=== PATIENT | female | born 1970 | race Caucasian/White ===

== ENCOUNTER 2017-10-15 14:07 | Emergency (ER) | payer MEDICAID ==
[~2017-10-15] VITALS: Ht 157.5 cm; Wt 74.6 kg
[2017-10-15 14:14] VITALS: BP 136/72
--- NOTE | 2017-10-15 14:20 | NUR ---
PATIENT PRESENTS TO ED WITH COMPLAINTS OF VAGINAL DISCHRGE, BURNING, AND IRRITATION. PATIENT STATES PROBLEM HAS BEEN GOING ON FOR 6 MONTHS. PATIENT DESCRIBES DISCHARGE CURDS AND GREEN IN COLOR, FOUL SMELLING. DENIES N/V/D; SKIN IS PINK/WARM/DRY; AAOX4 WITH EVEN AND STEADY GAIT; LUNGS CLEAR BL; HR EVEN AND REGULAR; PT DENIES ANY FEVER, CP, SOB, OR COUGH AT THIS TIME; PATIENT STATES PAIN OF 08/10 AT THIS TIME; VSS; PATIENT POSITIONED FOR COMFORT; HOB ELEVATED; BEDRAILS UP X1; BED DOWN. ER MD MADE AWARE OF PT STATUS.
--- NOTE | 2017-10-15 14:39 | NUR ---
ACCUCHECK - 335 ED MD NOTIFIED
[2017-10-15] MEDS ORDERED: INSULIN REGULAR, HUMAN 100 UNIT/ML VIAL SUBQ ONE (15:35)
[2017-10-15] MEDS ORDERED: FLUCONAZOLE 100 MG TAB PO ONE (15:35)
[2017-10-15] MEDS ORDERED: NACL 0.9% 1,000 ML IV ONE (15:45)
[2017-10-15 16:00] LABS: APPEARANCE,URINE CLEAR (CLEAR); BILIRUBIN,URINE NEGATIVE (NEGATIVE); BLOOD, URINE NEGATIVE (NEGATIVE); COLOR,URINE YELLOW (YELLOW); LEUKOCYTE ESTERASE ,URINE NEGATIVE (NEGATIVE); NITRITE, URINE NEGATIVE (NEGATIVE); UGLUCOSE 3+ (NEGATIVE)
[2017-10-15 16:10] LABS: BASOPHILS # (AUTO) 0.1 K/uL (0.00-0.22); BASOPHILS % (AUTO) 0.6 % (0.0-2.0); EOSINOPHILS # (AUTO) 0.2 K/uL (0-0.4); EOSINOPHILS % (AUTO) 2.2 % (0.0-4.0); HEMATOCRIT 41.3 % (36-48); HEMOGLOBIN 13.6 g/dL (12.0-16.0); LYMPHOCYTES # (AUTO) 2.9 K/uL (2.5-16.5); LYMPHOCYTES % (AUTO) 32.6 % (20.5-51.1); MEAN CORPUSCULAR HEMOGLOBIN 28 pg (27-31); MEAN CORPUSCULAR HGB CONC 33 g/dL (33-37); MEAN CORPUSCULAR VOLUME 85.3 fL (80-94); MONOCYTES # (AUTO) 0.4 K/uL (0.8-1.0); NEUTROPHILS # (AUTO) 5.3 K/uL (1.8-7.7); NEUTROPHILS % (AUTO) 59.6 % (42.2-75.2); PLATELET COUNT (AUTO) 237 K/uL (140-450); RED BLOOD CELL COUNT(AUTO) 4.85 MIL/uL (4.20-5.40); RED CELL DISTRIBUTION WIDTH 13.2 % (11.6-13.7); WHITE BLOOD COUNT (AUTO) 8.8 K/uL (4.8-10.8)
--- NOTE | 2017-10-15 16:26 | NUR ---
ACCUCHECK - 272 ED MD NOTIFIED
[2017-10-15 16:30] LABS: ALBUMIN 3.6 g/dL (3.4-5.0); ANION GAP 10.2 (8-16); CARBON DIOXIDE 30.8 mmol/L (21-32); CREATININE 0.6 mg/dL (0.6-1.3); TOTAL BILIRUBIN 0.2 mg/dL (0.0-1.0)
--- NOTE | 2017-10-15 17:08 | NUR ---
ACCUCHALEC - 251 ED MD NOTIFIED
--- NOTE | 2017-10-15 17:30 | NUR ---
Patient discharged with v/s stable. Written and verbal after care instructions given and explained. Patient alert, oriented and verbalized understanding of instructions. Ambulatory with steady gait. All questions addressed prior to discharge. ID band removed. Patient advised to follow up with PMD. Rx of METFORMIN AND DIFLUCAN given. Patient educated on indication of medication including possible reaction and side effects. Opportunity to ask questions provided and answered.
[2017-10-15 17:35] VITALS: BP 122/69
--- NOTE | 2017-10-20 12:13 | NUR ---
MEDICATION ADMINISTRATION NOTE 10/15/2017: INSULIN 6 UNITS ADMINISTERED AT APPROX START 1545 END 1545 COSIGNED BY FER ARTIS RN
== END 2017-10-15 17:30 | disposition home or self-care (01) ==
LOC: MED 14:07
DX: B37.3 Candidiasis of vulva and vagina (principal); E11.9 Type 2 diabetes mellitus without complications; Z88.8 Allergy status to other drugs, medicaments and biological substances
CPT/HCPCS: 36415; 80053; 81003; 85025; 96360; 99284; J1815; J7030

== ENCOUNTER 2018-04-20 11:04 | Emergency (ER) | payer MEDICAID ==
[~2018-04-20] VITALS: Ht 152.4 cm; Wt 74.8 kg
[2018-04-20 11:07] VITALS: BP 157/102
--- NOTE | 2018-04-20 11:15 | NUR ---
Patient ambulated to bed 7. RN evaluating patient at bedside.
--- NOTE | 2018-04-20 11:32 | NUR ---
Patient being evaluated by physician at bedside.
[2018-04-20] MEDS ORDERED: METOCLOPRAMIDE 10 MG/2 ML INJ VIAL IM ONE (11:35)
[2018-04-20] MEDS ORDERED: FAMOTIDINE 20 MG TAB PO ONE (11:35)
[2018-04-20] MEDS ORDERED: ACETAMINOPHEN 325 MG TAB PO ONE (11:35)
--- NOTE | 2018-04-20 11:41 | NUR ---
PT. BIB BY [facility], C/O OF HEADACHE SINCE LAST NIGHT, UPPER MEDIAL ABDOMINAL PAIN, NON TENDER TO TOUCH, POINTING BENEATH ZIPHOID PROCESS. STATES HAS N/V, DENIES DIARRHEA, AFBRILE, PT STATES SHE HAS FRONTAL RAMÍREZ THAT RADIATES TO THE BACK OF THE HEAD, DENIES BLURRY VISION, STEADY GAIT, MILD WEAKNESS. PMH: DM, HTN, MIGRAINES RX; METFORMIN
[2018-04-20 12:41] VITALS: BP 151/97
--- NOTE | 2018-04-20 12:41 | NUR ---
Patient discharged with v/s stable. Written and verbal after care instructions given and explained. Patient alert, oriented and verbalized understanding of instructions. Ambulatory with steady gait. All questions addressed prior to discharge. ID band removed. Patient advised to follow up with PMD. Rx of reglan and omeprazole given. Patient educated on indication of medication including possible reaction and side effects. Opportunity to ask questions provided and answered.
== END 2018-04-20 12:41 | disposition home or self-care (01) ==
LOC: MED 11:05
DX: K29.70 Gastritis, unspecified, without bleeding (principal); E11.9 Type 2 diabetes mellitus without complications; I10 Essential (primary) hypertension; Z88.8 Allergy status to other drugs, medicaments and biological substances
CPT/HCPCS: 96372; 99283; J2765

== ENCOUNTER 2020-12-13 09:02 | Emergency (ER) | payer MEDICAID ==
[~2020-12-13] VITALS: Ht 152.4 cm; Wt 73.0 kg
[2020-12-13 09:13] VITALS: BP 141/95
--- NOTE | 2020-12-13 09:23 | NUR ---
PT AMBULATED TO BED 9
--- NOTE | 2020-12-13 09:30 | NUR ---
50 Y/O FEMALE C/O VAGINAL PAIN AND ITCHINESS WITH PAINFUL URINATION X 3 DAYS. PT RATES PAIN 9/10, DENIES TAKING ANYTHING FOR PAIN AT HOME. PT IN MENOPAUSE. DENIES N/V/ABD PAIN. PT A/O X4 WITH EVEN AND UNLABORED RESPIRATIONS. PT IN GOWN PMH: DM ALLERGIES:IBUPROFEN
--- NOTE | 2020-12-13 10:00 | NUR ---
Female Compensation Coordinator accompanied female patient for EXTERNAL VAGINAL EXAM
[2020-12-13] MEDS ORDERED: FLUC150T PO (10:04)
[2020-12-13] MEDS ORDERED: CEPH-588 PO (10:04)
[2020-12-13] MEDS ORDERED: PHEN-1877 PO (10:04)
[2020-12-13 10:27] VITALS: BP 154/93
--- NOTE | 2020-12-13 10:27 | NUR ---
Patient discharged with v/s stable. Written and verbal after care instructions given and explained. Patient alert, oriented and verbalized understanding of instructions. Ambulatory with steady gait. All questions addressed prior to discharge. ID band removed. Patient advised to follow up with PMD. Rx of Cephalexin, Diflucan, Pyridium given. Patient educated on indication of medication including possible reaction and side effects. Opportunity to ask questions provided and answered.
[2020-12-13 13:11] LABS: APPEARANCE,URINE CLEAR (CLEAR); BILIRUBIN,URINE NEGATIVE (NEGATIVE); BLOOD, URINE NEGATIVE (NEGATIVE); COLOR,URINE YELLOW (YELLOW); NITRITE, URINE NEGATIVE (NEGATIVE); PH,URINE 7.5 (5.0-9.0); UGLUCOSE 1+ (NEGATIVE)
[2020-12-13 13:31] LABS: LEUKOCYTE ESTERASE ,URINE 1+ (NEGATIVE); RBC,URINE 0-5 /HPF (0-5); WBC,URINE 0-5 /HPF (0-5)
== END 2020-12-13 10:27 | disposition home or self-care (01) ==
LOC: MED 09:02
DX: B37.3 Candidiasis of vulva and vagina (principal); N39.0 Urinary tract infection, site not specified; E11.65 Type 2 diabetes mellitus with hyperglycemia; I10 Essential (primary) hypertension; Z88.6 Allergy status to analgesic agent; Z79.899 Other long term (current) drug therapy
CPT/HCPCS: 81001; 81025; 87086; 99284

== ENCOUNTER 2021-01-07 03:30 | Emergency (ER) | payer MEDICAID ==
[~2021-01-07] VITALS: Ht 162.6 cm; Wt 75.7 kg
[~2021-01-07 03:30] MED LIST: CEPH-588 PO; FLUC150T PO; PHEN-1877 PO
[2021-01-07 03:35] VITALS: BP 150/90
--- NOTE | 2021-01-07 03:35 | NUR ---
TO BED AMBULATORY
--- NOTE | 2021-01-07 03:40 | NUR ---
SEE COMEPLETE ASSESSMENT FOR FUTHER DETAILS.
--- NOTE | 2021-01-07 04:02 | NUR ---
SEB AT [facility] FOR MEDICAL EVALUATION.
[2021-01-07 04:56] LABS: ALBUMIN 3.7 g/dL (3.4-5.0); ANION GAP 9.6 (8-16); CARBON DIOXIDE 29.1 mmol/L (21-32); CREATININE 0.7 mg/dL (0.6-1.3); POTASSIUM 3.7 mmol/L (3.5-5.1); TOTAL BILIRUBIN 0.2 mg/dL (0.0-1.0)
[2021-01-07 05:06] LABS: BASOPHILS # (AUTO) 0.2 K/uL (0.00-0.22); BASOPHILS % (AUTO) 2.7 % (0.0-2.0); EOSINOPHILS # (AUTO) 0.3 K/uL (0-0.4); EOSINOPHILS % (AUTO) 4.6 % (0.0-4.0); HEMATOCRIT 39.5 % (36-48); HEMOGLOBIN 13.5 g/dL (12.0-16.0); LYMPHOCYTES # (AUTO) 1.8 K/uL (2.5-16.5); LYMPHOCYTES % (AUTO) 25.2 % (20.5-51.1); MEAN CORPUSCULAR HEMOGLOBIN 29 pg (27-31); MEAN CORPUSCULAR HGB CONC 34 g/dL (33-37); MONOCYTES # (AUTO) 0.4 K/uL (0.8-1.0); NEUTROPHILS # (AUTO) 4.4 K/uL (1.8-7.7); NEUTROPHILS % (AUTO) 61.5 % (42.2-75.2); PLATELET COUNT (AUTO) 218 K/uL (140-450); RED BLOOD CELL COUNT(AUTO) 4.64 MIL/uL (4.20-5.40); RED CELL DISTRIBUTION WIDTH 12.8 % (11.6-13.7); WHITE BLOOD COUNT (AUTO) 7.1 K/uL (4.8-10.8)
--- NOTE | 2021-01-07 05:12 | NUR ---
Patient appears to be resting comfortably in bed. Vital Signs within normal limits. Respirations even and unlabored.
[2021-01-07 05:19] LABS: APPEARANCE,URINE SL CLOUDY (CLEAR); BILIRUBIN,URINE NEGATIVE (NEGATIVE); BLOOD, URINE 3+ (NEGATIVE); COLOR,URINE YELLOW (YELLOW); LEUKOCYTE ESTERASE ,URINE TRACE (NEGATIVE); NITRITE, URINE NEGATIVE (NEGATIVE); PH,URINE 7.5 (5.0-9.0); UGLUCOSE 3+ (NEGATIVE)
[2021-01-07 05:36] LABS: WBC,URINE TOO MANY TO COUNT /HPF (0-5)
[2021-01-07] MEDS ORDERED: SULF-59 PO (05:46)
[2021-01-07] MEDS ORDERED: PHEN-1877 PO (05:46)
[2021-01-07 06:04] VITALS: BP 132/78
--- NOTE | 2021-01-07 06:04 | NUR ---
Patient discharged with v/s stable. Written and verbal after care instructions given and explained. Patient alert, oriented and verbalized understanding of instructions. Ambulatory with steady gait. All questions addressed prior to discharge. ID band removed. Patient advised to follow up with PMD. Rx of BACTRIM, PYRIDIUM given. Patient educated on indication of medication including possible reaction and side effects. Opportunity to ask questions provided and answered.
== END 2021-01-07 06:04 | disposition home or self-care (01) ==
LOC: MED 03:30
DX: N39.0 Urinary tract infection, site not specified (principal); E11.65 Type 2 diabetes mellitus with hyperglycemia
CPT/HCPCS: 36415; 80053; 81001; 85025; 87086; 99283

== ENCOUNTER 2021-11-22 08:44 | Emergency (ER) | payer BC, MEDICAID ==
[~2021-11-22] VITALS: Ht 162.6 cm; Wt 73.5 kg
[~2021-11-22 08:44] MED LIST changes: +SULF-59 PO
[2021-11-22 08:52] VITALS: BP 160/98
--- NOTE | 2021-11-22 09:22 | NUR ---
PT AMBULATED TO BED 07.
--- NOTE | 2021-11-22 09:35 | NUR ---
DR MILLER AT BEDSIDE EVALUATING PT
[2021-11-22] MEDS ORDERED: AMOXIL/CLAVULANATE 875/125 MG 1 TAB PO ONE (09:45)
[2021-11-22] MEDS ORDERED: ACETAMINOPHEN EXTRA STRENGTH 500 MG TAB PO ONE (09:45)
--- NOTE | 2021-11-22 09:45 | NUR ---
51YO FEMALE PT C/O HEADACHE XTODAY. PT STATES CONSISTENT PAIN W/ RADIARTION FROM L UPPER GUM , TO CHEEKBONE TO L QUAKER X1 MONTH. PT PRESENTS WITH REDDENED SWELLING IN UPPER L GUM DUE TO INFECTION AND STATES FINISHING RX ANTIBIOTICS GIVEN BY DENTIST. PT HAS HAD NO RELIEF AFTER ANTIBIOTICS, UNABLE TO RECALL NAME. PT TAKING TYLENOL FOR PAIN W/ MILD RELIEF. PT REPORTS INCREASED "HOT" PAIN XTHIS MORNING AND EXPRESSED CONCERN FOR POSSIBLE CANCER DUE TO FRIEND WITH SIMILIAR SYMPTOMS AND DX CANCER. PT AAOX4, RESPIRATIONS EVEN AND UNLABORED. NO VISIBLE DISTRESS. SAUDI ARABIAN SPEAKING HX: DIABETES ALLERGIES: IBUPROFEN
[2021-11-22] MEDS ORDERED: AMOX1TAB8 PO (10:02)
--- NOTE | 2021-11-22 10:15 | NUR ---
Patient discharged with v/s stable. Written and verbal after care instructions FOR DENTAL ABSCESS AND TENSION HEADACHE given and explained. Patient alert, oriented and verbalized understanding of instructions. Ambulatory with steady gait. All questions addressed prior to discharge. ID band removed. Patient advised to follow up with PMD. Rx of AMOXICILLIN given. Opportunity to ask questions provided and answered.
--- NOTE | 2021-11-22 10:16 | NUR ---
The patient's care was reviewed and supervised by Nevaeh Barry RN.
== END 2021-11-22 10:15 | disposition home or self-care (01) ==
LOC: MED 08:44
DX: K08.89 Other specified disorders of teeth and supporting structures (principal); R51.9 Headache, unspecified; E11.9 Type 2 diabetes mellitus without complications; Z88.6 Allergy status to analgesic agent; Z79.4 Long term (current) use of insulin; Z79.899 Other long term (current) drug therapy
CPT/HCPCS: 99283